=== PATIENT | male | born 1975 | race Caucasian/White ===

== ENCOUNTER 2021-10-19 13:41 | Emergency (ER) | payer BC, OTHER ==
[~2021-10-19] VITALS: Ht 185.4 cm; Wt 108.9 kg
[~2021-10-19 13:41] MED LIST: AMLODIPINE BESY10 MG PO; CLONAZEPAM 1 MG1 M1 PO; COLCHICINE0.6 MG PO; HYDROCHLOROTH12.5 M1 PO; HYDROCHLOROTHIA25 M2 PO; OXYCODONE HCL 55 MG PO; PRINIVIL20 MG PO
[2021-10-19 14:35] LABS: ABSOLUTE NEUTROPHILS 11.3 thou/uL (1.4-8.2); BASOPHILS 0.8 % (0.0-2.0); EOSINOPHILS 0.1 % (0.0-3.0); HEMATOCRIT 40.3 % (42.0-52.0); HEMOGLOBIN 14.3 gm/dL (14.0-18.0); LYMPHOCYTES 2.4 % (24.0-44.0); MCHC 35.5 g/dL (28.0-37.0); MCV 84.7 fL (80.0-100.0); MONOCYTES 1.9 % (1.0-8.0); PLATELET COUNT 130 thou/uL (150-400); POLYS 94.8 % (36.0-66.0); RBC 4.76 mil/uL (4.50-6.00); RDW 12.2 % (10.5-14.5); WBC 11.9 thou/uL (4.0-11.0)
[2021-10-19 14:42] LABS: CALCIUM 9.4 mg/dL (8.5-10.1); CREATININE 2.1 mg/dL (0.7-1.3); POTASSIUM 4.7 mmol/L (3.5-5.1)
[2021-10-19 14:48] LABS: ALBUMIN 3.2 g/dL (3.4-5.0); TOTAL BILIRUBIN 3.9 mg/dL (0.2-1.0); TOTAL PROTEIN 7.8 g/dL (6.4-8.2)
[2021-10-19 15:17] LABS: MICROCYTES 1+
[2021-10-19 15:18] LABS: ANISOCYTOSIS 1+; POIKILOCYTOSIS 1+
[2021-10-19] MEDS ORDERED: ZOFRAN ODT4 MG PO (18:04)
[2021-10-19] MEDS ORDERED: REGLAN 10 MG TA10 MG PO (18:04)
[2021-10-19 18:41] VITALS: BP 129/76
== END 2021-10-19 18:42 | disposition home or self-care (01) ==
LOC: ER 13:41
PROVIDERS: Emergency Medicine
DX: R11.2 Nausea with vomiting, unspecified (principal); I10 Essential (primary) hypertension; Z79.899 Other long term (current) drug therapy

== ENCOUNTER 2021-10-20 09:28 | Inpatient (IN) | payer BC, OTHER ==
[~2021-10-20] VITALS: Ht 185.4 cm; Wt 110.3 kg
[~2021-10-20 09:28] MED LIST changes: +REGLAN 10 MG TA10 MG PO; +ZOFRAN ODT4 MG PO
[2021-10-20 10:37] VITALS: BP 127/66
[2021-10-20 11:18] LABS: HEMATOCRIT 36.7 % (42.0-52.0); HEMOGLOBIN 12.8 gm/dL (14.0-18.0); MCHC 34.8 g/dL (28.0-37.0); MCV 86.1 fL (80.0-100.0); RBC 4.26 mil/uL (4.50-6.00); RDW 12.5 % (10.5-14.5); WBC 10.7 thou/uL (4.0-11.0)
[2021-10-20 11:32] LABS: CALCIUM 8.6 mg/dL (8.5-10.1); CREATININE 1.9 mg/dL (0.7-1.3); POTASSIUM 4.3 mmol/L (3.5-5.1)
[2021-10-20 11:38] LABS: ALBUMIN 2.7 g/dL (3.4-5.0); TOTAL BILIRUBIN 3.4 mg/dL (0.2-1.0); TOTAL PROTEIN 6.8 g/dL (6.4-8.2)
[2021-10-20 12:35] LABS: ABSOLUTE NEUTROPHILS 9.2 thou/uL (1.4-8.2); ANISOCYTOSIS SLIGHT; PLATELET COUNT 99 thou/uL (150-400); POIKILOCYTOSIS SLIGHT; TOXIC GRANULATION SLIGHT
[2021-10-20 22:11] VITALS: BP 139/84
[2021-10-21 00:53] LABS: URINE BILIRUBIN 1+ (Negative); URINE BLOOD TRACE (Negative); URINE CLARITY CLEAR; URINE COLOR YELLOW; URINE GLUCOSE-RANDOM* 2+ (Negative); URINE KETONES TRACE (Negative); URINE LEUKOCYTES-REFLEX NEGATIVE (Negative); URINE NITRITE-REFLEX NEGATIVE (Negative); URINE PROTEIN (DIPSTICK) NEGATIVE (Negative)
[2021-10-21 04:42] VITALS: BP 111/74
[2021-10-21 06:00] LABS: HEMOGLOBIN 11.1 gm/dL (14.0-18.0); MCH 29.6 pg (26.0-34.0); MCHC 33.8 g/dL (28.0-37.0); MCV 87.7 fL (80.0-100.0); RBC 3.76 mil/uL (4.50-6.00); RDW 12.8 % (10.5-14.5); WBC 11.7 thou/uL (4.0-11.0)
[2021-10-21 06:43] LABS: CREATININE 1.2 mg/dL (0.7-1.3)
--- NOTE | 2021-10-21 07:47 | HC ---
[facility] [place] [address] CONSULTATION Name: LIVIA LUKE Room #: 454-P ADM IN M.R.#: [id number] Admission: 10/20/21 Attend Phys: Gregor Day MD Discharge: Date of : 79 Report #: [id number] THIS REPORT FOR: cc: Lois Izquierdo MD, Pandurang P. MD Barry, Joseph W. MD ~ DATE OF SERVICE: 10/20/2021 INFECTIOUS DISEASE CONSULTATION ATTENDING PHYSICIAN: Dr. Ray. REASON FOR EVALUATION: Left lower extremity inflammatory eruption, suspected cellulitis in the setting of COVID-19 infection. HISTORY OF PRESENT ILLNESS: Chart reviewed. The patient examined. This is a 46-year-old gentleman with a history of gout, prediabetes, hypertension, who has been ill for a number of days. He notes he was diagnosed with COVID on 10/20 with fever and pharyngitis. Subsequently, he developed left lower extremity pain and swelling and nausea with emesis, which he attributes to the severe pain. He notes when he is on reasonably comfortably he is not having any nausea. Denies significant pulmonary related complaints. He notes initially thought he had episode of podagra, even he states he feels like it is gout as well, but there is extension of inflammatory eruption and he is unable to ambulate or bear weight. Evaluation noted he was hyponatremic with sodium 129, creatinine of 2.1. Abdominal ultrasound showed splenomegaly, otherwise unremarkable. Coronavirus testing is again positive. Chest x-ray showed no acute process. Influenza antigen testing was negative. Lactic acid was elevated at 4.6. Venous Doppler of the left lower extremity showed no evidence of DVT. He was empirically started on therapy with vancomycin and a dose of ceftriaxone as well. At this point, he is lucid. Denies severe pain. ALLERGIES: None known. CURRENT MEDICATIONS: Only include vancomycin. Takes colchicine, metoclopramide, metformin. PAST MEDICAL HISTORY: Includes hypertension, prediabetes. SOCIAL HISTORY: Nonsmoker, occasional ethanol, no illicit drug use. FAMILY HISTORY: Noncontributory. REVIEW OF SYSTEMS: As noted above. PHYSICAL EXAMINATION: [facility] [address] [place] [address] CONSULTATION Name: LIVIA LUKE JEREMI Room #: 454-P [facility] IN .R.#: [id number] Admission: 10/20/21 Attend Phys: Gregor Day MD Discharge: Date of : 79 Report #: [id number] GENERAL: He is alert, cooperative, in moderate distress. He is lucid. VITAL SIGNS: Temperature 101, pulse 124, respirations 18, blood pressure 127/66. SKIN: Warm. Does have an inflammatory eruption involving the left lower extremity. HEENT: Normocephalic. Extraocular muscles intact. NECK: Supple. LUNGS: Generally clear to auscultation bilaterally. HEART: Tachycardic, regular. I do not appreciate any murmur. ABDOMEN: Obese, somewhat firm, nontender. EXTREMITIES: Left lower extremity has moderate inflammatory changes. There is what appears to be a cluster of hyperpigmented vesicles. It is difficult to ascertain if it is following a dermatome over the anterior pretibial aspect focal area appears to be arthritis involving the first MTP on the left as well. It is quite tender to touch. GENITOURINARY AND RECTAL: Deferred. LABORATORY DATA: Lactic acid now 2.3. Most recent CBC: White count 10.7, H and H 12.8 and 36.7, platelets of 99. ASSESSMENT AND PLAN: 1. COVID-19 infection. 2. Left lower extremity inflammatory eruption. It is suspected that he has a degree of skin and soft tissue infection with cellulitis, cannot entirely exclude gouty arthritis involving the first MTP and even an issue of VZV. We will continue the vancomycin. We will add Valtrex. Consider evaluation of joint if that does not resolve with attempted aspiration for crystals. At this point, he is not overtly toxic. We will monitor expectantly. He was encouraged to elevate and ultimately he will try to compress the limb as well. <ELECTRONICALLY SIGNED> By: Quinten Villagomez MD 10/21/21 [id number] Quinten Villagomez MD /nt
--- NOTE | 2021-10-21 08:02 | NUR ---
ASSUME CARE 1900. PT/VITALS STABLE. DENIES ANY PAIN. GOOD ENDURANCE TO ACTIVITY. ASSESSMENT CHARTED. PROGRESSING MODERATELY WITH POC. NO DISTRESS NOTED. PLAN IS CONTINUE ABX THERAPY FOR CELLULITIS AND MONITOR AND MANAGE COVID. WILL CONTINUE TO MONITOR AND FOLLOW WITH POC
--- NOTE | 2021-10-21 11:38 | NUR ---
THIS RN SPOKE WITH THE PATIENT'S AND MOTHER, TIARA, FROM [phone] AND THEY WERE UPDATED AND EDUCATED ON THE PATIENT'S CONDITION AND PLAN OF CARE.
--- NOTE | 2021-10-21 16:15 | NUR ---
PT ADMITTED RELATED TO N/V AND COVID. CM REVIEWED CHART AND SPOKE WITH CARE TEAM. CM SPOKE WITH PT VIA PHONE THIS AFTERNOON. PT APPEARED TO BE A&O X4. CM ROLE INTRODUCED. PT INDICTED THAT HE RESIDES IN A HOUSE WITH HIS SPOUSE AND SON. PT INDICTAED ONE STEP TO ENTER AND A DULL FLIGHT OF STEP TO BASEMENT. PT INDICATED HE HAD BEEN INDEPENDENET WITH GAIT AND ADLS MOLD FILLER PLASTIC DOLLS. PT INDICATED NO HH OR OP HX. PT INDICATED HE PLANS TO RETURN HOME ONCE MEDICALLY STABLE. PT IS ON IV VANC AND GIT CT OF L LE EARLIER THIS DAY. CM FOLLOWING REGARDING DC PLANNING NEEDS.
[2021-10-21 17:06] VITALS: BP 131/78
--- NOTE | 2021-10-21 17:58 | NUR ---
PATIENT PROGRESSING TOWARDS THE PLAN OF CARE. DECREASING COMPLAINTS OF NAUSEA. PAIN TOLERABLE THROUGHOUT THE DAY PER PATIENT.
[2021-10-21 19:28] LABS: % SATURATION 23 % (20-39); IRON 31 ug/dL (65-175); TIBC 136 ug/dL (250-450)
[2021-10-21 19:29] LABS: ALBUMIN 1.9 g/dL (3.4-5.0); DIRECT BILIRUBIN 2.4 mg/dL (<0.1-0.2); TOTAL PROTEIN 5.5 g/dL (6.4-8.2)
[2021-10-21 19:37] VITALS: BP 127/73
[2021-10-21 20:00] LABS: OBSERVED RETIC COUNT 0.46 % (0.6-2.6)
[2021-10-21 20:06] LABS: FOLIC ACID 6.1 ng/mL (8.6-58.9)
[2021-10-21 21:30] LABS: APTT 33.3 Seconds (24.5-32.8); INR 1.78; PROTIME 18.9 Seconds (10.5-12.1)
[2021-10-22 04:06] LABS: GLYCOHEMOGLOBIN (HGB A1C) 7.8 % (4.8-5.6)
[2021-10-22 05:18] VITALS: BP 127/69
--- NOTE | 2021-10-22 07:55 | NUR ---
ASSUME CARE 1900. PT/VITALS STABLE. NO DISTRESS NOTED THROUGH THE NIGHT/ INTERMITTENT LEFT LEG PAIN WITH RELIEF FROM HYDROCODONE. SR ON MONITOR. ASSESSMENT CHARTED. PROGRESSING WELL WITH POC. WILL CONTINUE TO MONITOR AND FOLLOW WITH POC
[2021-10-22 08:34] VITALS: BP 137/76
[2021-10-22 08:49] LABS: CALCIUM 7.6 mg/dL (8.5-10.1); POTASSIUM 3.7 mmol/L (3.5-5.1)
[2021-10-22 09:17] LABS: ABSOLUTE NEUTROPHILS 4.3 thou/uL (1.4-8.2); BASOPHILS 0.2 % (0.0-2.0); EOSINOPHILS 0.3 % (0.0-3.0); HEMATOCRIT 33.5 % (42.0-52.0); HEMOGLOBIN 11.2 gm/dL (14.0-18.0); LYMPHOCYTES 8.6 % (24.0-44.0); MCH 29.7 pg (26.0-34.0); MCHC 33.5 g/dL (28.0-37.0); MCV 88.7 fL (80.0-100.0); MONOCYTES 5.4 % (1.0-8.0); PLATELET COUNT 60 thou/uL (150-400); POLYS 85.5 % (36.0-66.0); RBC 3.77 mil/uL (4.50-6.00); RDW 12.9 % (10.5-14.5); WBC 5.1 thou/uL (4.0-11.0)
[2021-10-22 12:12] VITALS: BP 127/79
--- NOTE | 2021-10-22 15:04 | NUR ---
CM REVIWED CHART AND SPOKE WITH CARE TEAM. PT CONTINUES ON MULTIPAL IV ABX. STILL AWAITING CULTURES TO DETERMINE IVX TREATMENT NEEDS UPON DC. CM FOLLOWING.
[2021-10-22 15:07] LABS: IgA 180 mg/dL (90-386); IgG 821 mg/dL (603-1613); IgM 128 mg/dL (20-172)
[2021-10-22 16:45] VITALS: BP 132/69
--- NOTE | 2021-10-22 18:26 | NUR ---
ASSUMED PATIENT CARE AT 0700. A/O X4. LEFT LEG ELEVATED ON PILLOW. PAIN MED GIVEN NEEDS. OFF COVID ISO. SLOWLY TOWARDS POC GOALS.
[2021-10-22 22:00] VITALS: BP 131/87
[2021-10-23 00:06] LABS: HEMATOLOGY COMMENTS Note: (()); HEMOGLOBIN 11.6 g/dL (13.0-17.7)
--- NOTE | 2021-10-23 05:00 | NUR ---
ASSUMED CARE AT 1930 OF 10/22. PATIENT IS A&OX4. REPORTS PAIN IN LLE, WHICH IS MANAGED WITH PRN HYDROCODONE, WITH SOME EFFECTIVENESS. IV ABX ADMINISTERED ORDERED VIA RIGHT AC PIV, WHICH REMAINS INTACT AND PATENT. PATIENT DIURESING ADEQUATELY. PATIENT IS USING URNAL AT SIDE OF BED INDEPENDENTLY. ABLE TO MAKE NEEDS KNOWN, CALL LIGHT WITHIN REACH. WILL CONTINUE TO MONITOR.
[2021-10-23 07:38] VITALS: BP 136/82
[2021-10-23 14:12] LABS: ABSOLUTE NEUTROPHILS 3.2 thou/uL (1.4-8.2); BASOPHILS 0.2 % (0.0-2.0); EOSINOPHILS 1.1 % (0.0-3.0); HEMATOCRIT 35.6 % (42.0-52.0); HEMOGLOBIN 11.9 gm/dL (14.0-18.0); LYMPHOCYTES 11.8 % (24.0-44.0); MCH 29.5 pg (26.0-34.0); MCHC 33.5 g/dL (28.0-37.0); MCV 87.8 fL (80.0-100.0); MONOCYTES 9.8 % (1.0-8.0); PLATELET COUNT 77 thou/uL (150-400); POLYS 77.1 % (36.0-66.0); RBC 4.05 mil/uL (4.50-6.00); RDW 12.8 % (10.5-14.5); WBC 4.2 thou/uL (4.0-11.0)
--- NOTE | 2021-10-23 15:43 | 2DMMODE ---
[facility] [place] [address] 2 D/M-MODE ECHOCARDIOGRAM Name: LIVIA LUKE Room #: 454-P ADM IN M.R.#: [id number] Admission: 10/20/21 Attend Phys: Gregor Day MD Discharge: Date of : 79 Report #: [id number] THIS REPORT FOR: cc: Lois Izquierdo MD, Pandurang P. MD Santiago, Patrick MD [facility] ~ APPROVED REPORT Study performed: 10/23/2021 14:57:28 EXAM: Limited 2D, Doppler, and color-flow Echocardiogram Patient Location: Bedside Room #: 454 Status: routine BSA: 2.31 HR: 73 bpm BP: 136/82 mmHg Rhythm: NSR Other Information Study Quality: Fair/Poor apical windows. Technically limited study due to flat on back. Indications Bilateral leg swelling, COVID + 2D Dimensions IVSd: 12.14 (7-11mm) LVDd: 44.37 mm PWd: 12.31 (7-11mm) Ascending Ao: 32.33 (22-36mm) LVDs: 30.65 (25-40mm) Left Atrium: 43.71 (27-40mm) Aortic Root: 37.31 mm Aortic Valve AoV Peak Franco.: 1.21 m/s AO Peak Gr.: 5.83 mmHg Mitral Valve E/A Ratio: 1.3 MV Decel. Time: 207.45 ms MV E Max Franco.: 0.51 m/s MV A Franco.: 0.38 m/s MV PHT: 60.16 ms [facility] [address] [place] [address] 2 D/M-MODE ECHOCARDIOGRAM Name: PAULINA LUKEDewayne BLOOD Room #: 454-P ADM IN .R.#: [id number] Admission: 10/20/21 Attend Phys: Erika Rand Discharge: Date of : 79 Report #: [id number] Pulmonary Valve PV Peak Franco.: 1.14 m/s PV Peak Gr.: 5.23 mmHg Tricuspid Valve RAP Estimate: 5.00 mmHg Left Ventricle The left ventricle is normal size. There is normal LV segmental wall motion. Borderline concentric left ventricular hypertrophy. Left ventricular systolic function is normal. LVEF is 60-65%. Right Ventricle The right ventricle is normal size. The right ventricular systolic function is normal. Atria The left atrium size is normal. The right atrium size is normal. Aortic Valve The aortic valve is normal in structure. No aortic regurgitation is present. There is no aortic valvular stenosis. Mitral Valve The mitral valve is normal in structure. There is no mitral valve regurgitation noted. No evidence of mitral valve stenosis. Tricuspid Valve The tricuspid valve is normal in structure. There is no tricuspid valve regurgitation noted. Unable to assess PA pressure. Pulmonic Valve The pulmonary valve is normal in structure. Trace pulmonic regurgitation. Great Vessels The aortic root is normal in size. The ascending aorta is normal in size. IVC is normal in size and collapses >50% with inspiration. Pericardium There is no pericardial effusion. <Conclusion> Normal left ventricle size with borderline concentric [facility] [address] [address] 2 D/M-MODE ECHOCARDIOGRAM Name: LIVIA LUKE Room #: 454-P [facility] IN .R.#: [id number] Admission: 10/20/21 Attend Phys: Erika Rand Discharge: Date of : 79 Report #: [id number] Ejection fraction of 60% Normal right ventricle size/function Normal atrial size Normal aortic/mitral valve structure and function No tricuspid valve insufficiency No pericardial effusion Normal aortic root size <ELECTRONICALLY SIGNED> By: Lobo De Los Santos MD, FACC 10/23/21 1542 [id number] 41 Lobo De Los Santos MD, FACC /INF
[2021-10-23 15:47] LABS: ALBUMIN 1.9 g/dL (3.4-5.0); CALCIUM 7.8 mg/dL (8.5-10.1); CREATININE 0.8 mg/dL (0.7-1.3); POTASSIUM 3.6 mmol/L (3.5-5.1); TOTAL BILIRUBIN 2.7 mg/dL (0.2-1.0); TOTAL PROTEIN 5.8 g/dL (6.4-8.2)
[2021-10-23 22:06] LABS: GLOBULIN TOTAL 2.8 g/dL (2.2-3.9); M-SPIKE Not Observed g/dL (Not Observed)
[2021-10-23 23:32] VITALS: BP 136/74
--- NOTE | 2021-10-24 04:03 | NUR ---
RECEIVED CARE OF THIS PATIENT AT 0010. PATIENT ALERT AND ORIENTED X4. HAS SEVERAL WOUNDS OF LLE. LLE UP ON PILLOW. C/O PAIN, MED GIVEN. SLEPT OFF AND ON DURING THIS SHIFT.
[2021-10-24 08:00] VITALS: BP 149/77
[2021-10-24 12:37] VITALS: BP 151/94
[2021-10-24 16:32] VITALS: BP 128/79
[2021-10-24 19:28] VITALS: BP 146/79
--- NOTE | 2021-10-25 04:59 | NUR ---
PT LYING IN BED. OXY IR PROVIDING PAIN RELIEF. RESTING COMFORTABLY. NO NEEDS VOICED. CALL LIGHT WITHIN REACH. FREQUENT OBSERVATION.
[2021-10-25 07:24] VITALS: BP 154/86
[2021-10-25 09:29] LABS: ABSOLUTE NEUTROPHILS 4.7 thou/uL (1.4-8.2); BASOPHILS 0.1 % (0.0-2.0); EOSINOPHILS 0.2 % (0.0-3.0); HEMATOCRIT 35.3 % (42.0-52.0); HEMOGLOBIN 11.8 gm/dL (14.0-18.0); LYMPHOCYTES 11.5 % (24.0-44.0); MCH 29.4 pg (26.0-34.0); MCHC 33.6 g/dL (28.0-37.0); MCV 87.7 fL (80.0-100.0); MONOCYTES 7.1 % (1.0-8.0); POLYS 81.1 % (36.0-66.0); RBC 4.02 mil/uL (4.50-6.00); RDW 12.5 % (10.5-14.5); WBC 5.8 thou/uL (4.0-11.0)
[2021-10-25 09:30] LABS: PLATELET COUNT 159 thou/uL (150-400)
[2021-10-25 09:41] LABS: ALBUMIN 1.9 g/dL (3.4-5.0); CALCIUM 7.9 mg/dL (8.5-10.1); CREATININE 0.8 mg/dL (0.7-1.3); MAGNESIUM 1.7 mg/dL (1.8-2.4); POTASSIUM 4.6 mmol/L (3.5-5.1); TOTAL BILIRUBIN 1.3 mg/dL (0.2-1.0); TOTAL PROTEIN 5.7 g/dL (6.4-8.2)
[2021-10-25 11:36] VITALS: BP 152/95
[2021-10-25 16:45] VITALS: BP 135/83
[2021-10-25 19:25] VITALS: BP 140/80
[2021-10-26 00:33] LABS: URINE BILIRUBIN NEGATIVE (Negative); URINE BLOOD NEGATIVE (Negative); URINE CLARITY CLEAR; URINE COLOR YELLOW; URINE GLUCOSE-RANDOM* 2+ (Negative); URINE KETONES 1+ (Negative); URINE LEUKOCYTES NEGATIVE (Negative); URINE NITRITE NEGATIVE (Negative); URINE PROTEIN (DIPSTICK) NEGATIVE (Negative); URINE SPECIFIC GRAVITY 1.015 (1.005-1.035); URINE UROBILINOGEN 0.2 E.U./dl (0.2-1.0)
[2021-10-26 04:26] VITALS: BP 142/83
[2021-10-26 08:20] VITALS: BP 156/88
--- NOTE | 2021-10-26 08:53 | NUR ---
PT LYING IN BED. VOIDING PER URINAL. OXY IR PROVIDING PAIN RELIEF. RESTING COMFORTABLY. NO NEEDS VOICED. CALL LIGHT WITHIN REACH. FREQUENT OBSERVATION.
--- NOTE | 2021-10-26 10:51 | NUR ---
ASSUMED CARE OF PT AT 0700. ADMINISTERED MORNING ANTIBIOTIC AND PAIN MEDS. PT IS SET TO DISCHARGE TODAY. ALL VITAL SIGNS WNL.
[2021-10-26] MEDS ORDERED: TRADJENTA5 MG PO (12:16)
[2021-10-26] MEDS ORDERED: FOLIC ACID1 MG PO (12:16)
[2021-10-26] MEDS ORDERED: GLUCOTROL5 MG PO (12:16)
[2021-10-26] MEDS ORDERED: AMOX TR-K CLV1 EAC4 PO (12:16)
[2021-10-26] MEDS ORDERED: PREDNISONE 20 M20 M1 PO (12:17)
[2021-10-26] MEDS ORDERED: NORCO5 PO (13:31)
[2021-10-26 19:06] LABS: ANA INTERPRETATION Negative (())
[2021-10-28 06:06] LABS: HSV 1 DNA Negative (Negative); HSV 2 DNA Negative (Negative)
[2021-10-28 07:09] LABS: HEP B SURFACE Ab(ANTI-HBS Non Reactive (()); HEPATITIS B SURFACE AG Negative (Negative); HEPATITIS C VIRUS AB <0.1 (0.0-0.9)
[2021-10-28] MEDS ORDERED: JANUVIA50 MG PO (11:56)
[2021-10-28 13:01] LABS: HSV PCR SOURCE BLISTER
== END 2021-10-26 14:06 | disposition home or self-care (01) | DRG 871 ==
LOC: ER 09:28 → 4W 21:08 → 4S 10-24 00:16
PROVIDERS: Emergency Medicine; Internal Medicine; Specialist; ADMIT Hospitalist; ATTEND Hospitalist
DX: A40.9 Streptococcal sepsis, unspecified (principal); U07.1 COVID-19; E43 Unspecified severe protein-calorie malnutrition; L03.116 Cellulitis of left lower limb; E87.1 Hypo-osmolality and hyponatremia; N17.9 Acute kidney failure, unspecified; I10 Essential (primary) hypertension; M10.9 Gout, unspecified; R74.01 Elevation of levels of liver transaminase levels; D69.6 Thrombocytopenia, unspecified; E87.8 Other disorders of electrolyte and fluid balance, not elsewhere classified; E11.622 Type 2 diabetes mellitus with other skin ulcer; E66.9 Obesity, unspecified; E11.65 Type 2 diabetes mellitus with hyperglycemia; E80.6 Other disorders of bilirubin metabolism; Z79.899 Other long term (current) drug therapy; Z86.16 Personal history of COVID-19; Z82.49 Family history of ischemic heart disease and other diseases of the circulatory system; Z68.32 Body mass index [BMI] 32.0-32.9, adult
CPT/HCPCS: 10040; 10045; 10100

== ENCOUNTER → 2021-11-23 | Outpatient (CLI) | payer BC, OTHER ==
[~2021-11-23] MED LIST changes: +AMOX TR-K CLV1 EAC4 PO; +FOLIC ACID1 MG PO; +GLUCOTROL5 MG PO; +JANUVIA50 MG PO; +NORCO5 PO; +PREDNISONE 20 M20 M1 PO; +TRADJENTA5 MG PO
== END ==
LOC: HYPER 12:45
PROVIDERS: ATTEND Emergency Medicine
DX: E11.622 Type 2 diabetes mellitus with other skin ulcer (principal); L97.822 Non-pressure chronic ulcer of other part of left lower leg with fat layer exposed; I10 Essential (primary) hypertension; M10.9 Gout, unspecified; Z79.84 Long term (current) use of oral hypoglycemic drugs; Z87.891 Personal history of nicotine dependence

== ENCOUNTER → 2021-11-30 | Outpatient (CLI) | payer BC, OTHER | LOC: HYPER 10:13 | PROVIDERS: ATTEND Emergency Medicine | DX: E11.622 Type 2 diabetes mellitus with other skin ulcer (principal); L97.822 Non-pressure chronic ulcer of other part of left lower leg with fat layer exposed; L03.116 Cellulitis of left lower limb; I10 Essential (primary) hypertension; Z87.891 Personal history of nicotine dependence; Z79.84 Long term (current) use of oral hypoglycemic drugs; Z79.899 Other long term (current) drug therapy ==